=== PATIENT | female | born 1995 | race Caucasian/White ===

== ENCOUNTER 2018-09-23 09:23 | Day surgery (SDC) | payer OTHER ==
[2018-09-23] MEDS ORDERED: CEFAZOLIN 2 GM/50 ML (PMX) 50 ML IVPB (11:30)
[2018-09-23] MEDS ORDERED: LACTATED RINGER'S 1,000 ML IV* (11:30)
[2018-09-23] MEDS ORDERED: PROPOFOL 20 ML (12:25)
[2018-09-23] MEDS ORDERED: MIDAZOLAM 1 MG/ML 2 ML INJ (12:25)
[2018-09-23] MEDS ORDERED: FENTAnyl 50 MCG/ML VIAL (12:25)
[2018-09-23] MEDS ORDERED: CEFAZOLIN 1 GM INJ (12:31)
[2018-09-23] MEDS: BUPIVACAINE 0.5% (SDV) 30 ML INJ (13:08)
== END 2018-09-23 15:05 | disposition home or self-care (01) ==
LOC: SDS 09:23
DX: M67.432 Ganglion, left wrist (principal); M65.4 Radial styloid tenosynovitis [de Quervain]
CPT/HCPCS: 25111